=== PATIENT | female | born 1955 | race Caucasian/White ===

== ENCOUNTER 2021-11-03 11:36 | Emergency (ER) | payer MEDICARE, OTHER ==
[2021-11-03] MEDS ORDERED: Ketorolac Tromethamine 30 MG/ML VIAL ONE (15:31)
== END 2021-11-03 16:31 | disposition home or self-care (01) ==
LOC: CSHERS 11:36
DX: M54.50 Low back pain, unspecified (principal); M25.552 Pain in left hip; I10 Essential (primary) hypertension; E11.9 Type 2 diabetes mellitus without complications; G43.909 Migraine, unspecified, not intractable, without status migrainosus; E78.5 Hyperlipidemia, unspecified
CPT/HCPCS: 72100; 96372; J1885